=== PATIENT | female | born 2000 | race Caucasian/White ===

== ENCOUNTER 2023-09-03 12:16 | Emergency (ER) | payer OTHER, SELFPAY ==
[2023-09-03 12:17] VITALS: BP 119/87; PULSE 92; RESP 16; TEMP 36.7; O2SAT 99; BMI 25.7
[2023-09-03 12:32] VITALS: PULSE 93; O2SAT 100
--- NOTE | 2023-09-03 12:37 | PC.NURSE ---
DR LOPEZ AT BEDSIDE
[2023-09-03 12:45] VITALS: PULSE 91; O2SAT 100
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
[2023-09-03 13:02] LABS: Microscopic, Urine URINE MICROSCOPIC (MICROSCOPIC)
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
[2023-09-03 13:07] LABS: Appearance,Urine CLEAR (Clear); Bilirubin,Urine Negative (Negative); Blood, Urine Negative (Negative); Color,Urine YELLOW (Yellow); Glucose,Urine (UA) Negative (Negative); Ketones,Urine Negative (Negative); Leukocyte Esterase,Urine Negative (Negative); Nitrate,Urine Negative (Negative); Protein,Urine Negative (Negative); Urobilinogen,Urine 0.2 EU/dl (0.2)
[2023-09-03 13:09] LABS: Urine Pregnancy, HCG Qual. Negative (Negative)
[2023-09-03] MEDS: IBUPROFEN 600 MG TABLET PO (13:30)
[2023-09-03] MEDS: ACETAMINOPHEN 500MG TAB 1000 MG PO (13:30)
[2023-09-03 13:31] LABS: Amorphous Sediment,Urine Trace /lpf; Squamous Epithelial Cell,Urine Occasional #/hpf (0-5)
[2023-09-03 15:21] VITALS: BP 130/70; PULSE 70; RESP 20; TEMP 36.7; O2SAT 97
== END 2023-09-03 15:22 | disposition home or self-care (01) ==
PROVIDERS: Emergency Provider Emergency Medicine
DX: R07.9 Chest pain, unspecified (principal); R51.9 Headache, unspecified; S29.012A Strain of muscle and tendon of back wall of thorax, initial encounter; S39.012A Strain of muscle, fascia and tendon of lower back, initial encounter; V49.40XA Driver injured in collision with unspecified motor vehicles in traffic accident, initial encounter
CPT/HCPCS: 71045; 72070; 72100; 72170; 81001; 81025; 99285

== ENCOUNTER 2023-09-05 09:10 | Emergency (ER) | payer SELFPAY ==
[2023-09-05 09:11] VITALS: BP 140/92; PULSE 112; RESP 16; O2SAT 97; BMI 24.9
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
[2023-09-05] MEDS: METHOCARBAMOL 500MG TABLET 1000 MG PO (09:28)
[2023-09-05] MEDS: ACETAMINOPHEN 500MG TAB 1000 MG PO (09:28)
[2023-09-05 09:44] LABS: Basophils # 0.1 K/mm3 (0-0.2); Basophils % 0.4 % (0.1-2.0); Eosinophils # 0.1 K/mm3 (0.0-0.4); Eosinophils % 0.5 % (0.1-12.0); Hematocrit 42.5 % (37.0-47.0); Hemoglobin 14.4 g/dL (12.2-16.2); Lymphocytes # 1.3 K/mm3 (0.7-4.5); Mean Corpuscular Hemoglobin 31.3 pg (27.0-31.2); Mean Corpuscular Volume 92.2 fl (81-99); Mean Platelet Volume 8.7 fl (7.4-10.4); Monocytes # 0.6 K/mm3 (0.1-1.0); Monocytes % 6.2 % (1.7-9.3); Neutrophils # 8.2 K/mm3 (1.8-7.8); Neutrophils % 79.8 % (37.0-80.0); Platelet Count 232 K/mm3 (142-424); Red Cell Distribution Width 12.8 % (11.5-17.5); White Blood Count 10.3 K/mm3 (4.8-10.8)
[2023-09-05 09:50] LABS: Chloride 101 mmol/L (98-107); Potassium 3.6 mmoL/L (3.5-5.1); Sodium 135 mmol/L (136-145)
[2023-09-05 09:53] LABS: Alanine Aminotransferase 21 U/L (12-78); Albumin/Globulin Ratio 1.3 (1.1-1.8); Alkaline Phosphatase 73 U/L (38-126); Anion Gap 8.6 mEq/L (5-15); Aspartate Amino Transferase 28 U/L (14-36); Bilirubin,Total 1.7 mg/dl (0.2-1.3); Blood Urea Nitrogen 9 mg/dl (7-17); Calcium 8.7 mg/dl (8.4-10.2); Carbon Dioxide 29 mmol/L (22.0-30.0); Creatinine Clearance Estimated 150 mL/min (50-200); Estimated Glomerular Filt Rate 123 ml/min (>60); GFR (African American) 149 ML/MIN (>60); Glucose 100 mg/dl (74-100)
[2023-09-05 10:00] VITALS: BP 124/75; PULSE 94; RESP 22; O2SAT 98
--- NOTE | 2023-09-05 10:04 | PC.NURSE ---
Rounded on pt. No needs voiced at this time. Call light within reach.
[2023-09-05 10:05] LABS: HCG Qualitative, Serum Negative (Negative)
[2023-09-05] MEDS: COCAINE 4% TOPICAL SOLN 4ML BOTTLE 1 ML TP (11:49)
[2023-09-05] MEDS: LIDOCAINE 2% UROJET 10ML TP (11:49)
[2023-09-05] MEDS: EPINEPHrine 1 MG/ML AMPUL TP (11:50)
[2023-09-05] MEDS: KETOROLAC 30MG/ML VIAL 30 MG IM (12:51)
[2023-09-05 13:13] VITALS: BP 99/60; PULSE 83; RESP 18; TEMP 36.6; O2SAT 99
== END 2023-09-05 13:15 | disposition home or self-care (01) ==
PROVIDERS: Emergency Provider Emergency Medicine
DX: S23.3XXA Sprain of ligaments of thoracic spine, initial encounter (principal); L05.01 Pilonidal cyst with abscess; V49.40XA Driver injured in collision with unspecified motor vehicles in traffic accident, initial encounter
CPT/HCPCS: 10081; 72125; 72128; 72131; 72192; 80053; 84703; 85025; 99285

== ENCOUNTER 2023-09-08 13:15 | Emergency (ER) | payer SELFPAY ==
[2023-09-08 13:16] VITALS: BP 132/85; PULSE 75; RESP 18; TEMP 36.7; O2SAT 97; BMI 25.7
--- NOTE | 2023-09-08 14:34 | ED_ITS ---
Discharge Plan Disposition Patient Disposition: Home, Self-Care Prescriptions Prescriptions: No Action methocarbamol 1,000 mg tablet 1,000 mg PO Q8H PRN (Reason: muscle spasm) Qty: 12 0RF amoxicillin-pot clavulanate 875-125 mg tablet 1 tab PO BID Qty: 14 0RF Referrals Follow up/Referrals: Robert Melchor DO [Primary Care Provider] - See instructions Activity Restrictions/Add. Instructions Additional Instructions/Restrictions: Your wound is healing well no evidence of ongoing purulent drainage the superficial area where there was an incision has since healed no evidence of foreign body. Return with spreading redness significant pain high fevers or other concerns. Clinical Impressions Clinical Impression: Encounter for assessment of wound Instructions Patient Instructions: DI for Laceration Repair Discharge ED Provider: Sugar Martin General Adult HPI General Chief complaint: Wound/Laceration Stated complaint: check drain tube Time Seen by Provider: 09/08/23 14:30 Mode of Arrival: Ambulatory Source of Information: Patient Limitations: No Limitations Description of Symptoms (Recalled from ER Triage Doc. by RN): Patient states that she had a cyst drained in the ER a couple of days ago and her had been packing the incision for her. This morning when she woke up the packing had fallen out of the incision and her incision had healed over. States her didn't want to open it up to repack the wound so she has presented to the ER to have her wound looked at. History of Present Illness HPI narrative: Patient is a 23-year-old female was here few days ago had an incision and drainage in her rectal area had some iodoform packing that was placed but the packing fell out and the incision had healed over and she did not know what to do so she came in for reevaluation. Pain is significantly improved no high fevers she still on antibiotics. Related Data Previous Rx's Medication Instructions Recorded amoxicillin 875 mg-potassium 1 tab PO BID pilonidal abscess #14 09/05/23 clavulanate 125 mg tablet tabs methocarbamol 1,000 mg tablet 1,000 mg PO Q8H PRN muscle spasm 09/05/23 #12 tabs Allergies Allergy/AdvReac Type Severity Reaction Status Date / Time No Known Allergies Allergy Verified 09/03/23 12:38 [facility] Disclaimer: The information contained in this section may have been updated after the patient was seen, as this information can be updated by other users. Social History (Updated 09/03/23 @ 15:20 by Tyrone Cardona MD) Smoking Status: Never smoker alcohol intake: never current occupational status: employed Travel in the last 8 weeks: None ROS Obtained: Yes All systems reviewed & no additional complaints except as documented Physical Exam General General appearance: alert Respiratory Respiratory exam: Present normal lung sounds bilaterally Cardiovascular Cardiovascular exam: Present regular rate Rectal Exam comment: There is a 0.5 cm incision that is well-healed there is no ongoing purulent drainage or pathologic erythema Neurological Exam Neurological exam: Present alert Medical Decision Making Jerardo Inquiry Pt receiving controlled substance: No Vital Signs: 09/08/23 13:16 Temperature 98.0 F Temperature Source Oral Pulse Rate [Radial] 75 Respiratory Rate 18 Blood Pressure [Right Arm] 132/85 Blood Pressure Mean [Right Arm] 100 Blood Pressure Source [Right Arm] Automatic Cuff Blood Pressure Position [Right Arm] Sitting 02 Sat by Pulse Oximetry 97 Oxygen Delivery Method Room Air Medical Decision Narrative: Well-healing wound in this 23-year-old with recent incision and drainage no evidence of foreign body ongoing cellulitis or purulent drainage she was reassured she was discharged in stable condition with return precautions. Critical Care Critical Care Time Critical Care Time: No
[2023-09-08 14:37] VITALS: BP 132/85; PULSE 75; RESP 18; TEMP 36.7; O2SAT 97
== END 2023-09-08 14:37 | disposition home or self-care (01) ==
PROVIDERS: Emergency Provider Student in an Organized Health Care Education/Training Program; PCP Internal Medicine
DX: L05.91 Pilonidal cyst without abscess (principal)
CPT/HCPCS: 99281

== ENCOUNTER 2024-04-28 09:16 | Outpatient (CLI) | payer SELFPAY ==
[2024-04-28 09:55] LABS: Basophils # 0.1 K/mm3 (0-0.2); Basophils % 0.9 % (0.1-2.0); Eosinophils % 0.3 % (0.1-12.0); Hematocrit 42.2 % (37.0-47.0); Hemoglobin 13.7 g/dL (12.2-16.2); Lymphocytes # 1.3 K/mm3 (0.7-4.5); Lymphocytes % 19.5 % (10-50); Mean Corpuscular HGB Conc 32.5 g/dL (31.8-35.4); Mean Corpuscular Hemoglobin 30.9 pg (27.0-31.2); Mean Corpuscular Volume 94.9 fl (81-99); Monocytes # 0.5 K/mm3 (0.1-1.0); Neutrophils # 4.7 K/mm3 (1.8-7.8); Neutrophils % 71.3 % (37.0-80.0); Platelet Count 243 K/mm3 (142-424); Red Blood Count 4.44 M/mm3 (4.20-5.40); Red Cell Distribution Width 13.4 % (11.5-17.5); White Blood Count 6.5 K/mm3 (4.8-10.8)
[2024-04-29 09:21] LABS: HCV Ab Non Reactive (Non Reactive); Hepatitis B Surface Antigen Negative (Negative)
[2024-04-29 12:52] LABS: HIV (1&2) Antibody Rapid NONREACTIVE (NONREACTIVE)
[2024-04-29 13:08] LABS: Rubella Antibodies, IgG 2.87 index (Immune >0.99)
[2024-04-29 14:13] LABS: Rapid Plasma Reagin Ab Titer Non Reactive titer (NonRea<1:1)
== END 2024-04-28 23:59 | disposition home or self-care (01) ==
LOC: LAB 09:18
PROVIDERS: PCP Obstetrics & Gynecology; Visit Provider Obstetrics & Gynecology
DX: Z34.81 Encounter for supervision of other normal pregnancy, first trimester (principal)
CPT/HCPCS: 86803; 86703; 36415; 85025; 86593; 86762; 86850; 87086; 87340

== ENCOUNTER 2024-05-27 16:30 | Outpatient (CLI) | payer MEDICAID, SELFPAY | END 2024-05-27 23:59 | disposition home or self-care (01) | LOC: LAB.DROPOF 16:30 | PROVIDERS: PCP Nurse Practitioner Obstetrics & Gynecology; Visit Provider Nurse Practitioner Obstetrics & Gynecology | DX: N39.0 Urinary tract infection, site not specified (principal) | CPT/HCPCS: 87086 ==

== ENCOUNTER 2024-07-23 13:07 | Outpatient (CLI) | payer MEDICAID, SELFPAY ==
--- NOTE | 2024-07-23 13:08 | US_ITS ---
PROCEDURE: US OB /MATERNAL DETAIL CLINICAL INDICATION: 20 week Anatomy Scan-OB Complete COMPARISON: No exams were available for comparison FINDINGS: Transabdominal sonographic images of the pelvis were obtained. From her established due date she is 20 weeks 3 days. Single viable intrauterine gestation. Breech position. Placenta: Posteriorplacenta grade 1. There is an average amount of fluid. The cervix appears satisfactory. Closed and measuring 3.23 cm in length. Complete survey performed and was unremarkable on the submitted images as in PACS. No discrete anomalies identified on survey imaging by technologist. Active fetus. Three-vessel cord with satisfactory umbilical cord insertion. 4- chamber heart noted. Situs, aortic arch, LVOT, RVOT, three-vessel view appear normal. Survey of brain & ventricles Unremarkable. Cerebellum, thalamus, choroid plexus, cisterna magna appear normal. Face and neck survey unremarkable. Profile, nasion, lips and nose appeared normal. Diaphragm and chest views unremarkable. Abdomen: Both kidneys noted and unremarkable. Stomach and bladder noted and satisfactory. Spine: Survey of the spine satisfactory with no anomalies identified nor imaged. Cervical, thoracic, lower spine appear normal. Both arms and legs noted. Amniotic Fluid: Adequate. MVP 2.87 cm Measurements: Average ultrasound age 20weeks 4days. Estimated due date by ultrasound age 0412/06/2024. Estimated weight 356g BPD = 20weeks 4days HC = 20weeks 2days AC = 20weeks 5days FL = 20weeks 3days Growth Percentile= 48 Heart Rate = 150bpm Cerebellum = 20weeks 2days Humerus = 20weeks 3days HC/AC is 1.15 FL/BPD is 0.69 FL/AC is 0.22 IMPRESSION: 1. Viable fetus in the breech presentation with a posterior placenta grade 1. 2. The fluid is within normal limits, MVP 2.87 cm. 3. Anatomical scan appears normal. Spinal views were incomplete due to position and suggest repeat scan in 2-3 weeks time. 4. There was an intracardiac echogenic foci within the left ventricle. Suggest maternal medicine consult. 5. There has been good interval growth with the fetus currently 48th percentile. Dictated by: John Berry MD 07/23/2024 17:52 John Berry MD in [facility] 07/23/2024 17:52
== END 2024-07-23 23:59 | disposition home or self-care (01) ==
LOC: RAD 13:08
PROVIDERS: PCP Nurse Practitioner Obstetrics & Gynecology; Referring Provider Nurse Practitioner Obstetrics & Gynecology; Visit Provider Obstetrics & Gynecology
DX: Z36.3 Encounter for antenatal screening for malformations (principal); Z3A.20 20 weeks gestation of pregnancy
CPT/HCPCS: 76811

== ENCOUNTER 2024-08-16 12:51 | Outpatient (CLI) | payer MEDICAID, SELFPAY ==
--- NOTE | 2024-08-16 12:51 | US_ITS ---
PROCEDURE: US OB FOLLOW UP CLINICAL INDICATION: Spinal views were incomplete due to positi COMPARISON: US US OB /MATERNAL DETAIL from 07/23/2024 FINDINGS: Transabdominal sonographic images of the pelvis were obtained. The following parameters are obtained: From her established due date she is 23weeks 6days Viable fetus in the breech presentation with a posterior placenta grade 1. The cervix measures 3.65 cm heart rate: 146bpm bpm. Amniotic fluid: Appears normal No obvious anomalies evident. stomach, bladder, kidneys, three-vessel cord, four chamber heart appear normal. There continues to be a small intracardiac echogenic foci in the left ventricle. spine: Cervical, thoracic and lower spine appear normal today. IMPRESSION: 1. Viable fetus in the breech presentation with a posterior placenta grade 1. 2. The fluid is within normal limits. 3. Limited anatomical scan today appears normal. Complete spinal views were seen and appear normal. There continues to be a small intracardiac echogenic foci within the left ventricle. Dictated by: John Berry MD 08/17/2024 08:17 John Berry MD in [facility] 08/17/2024 08:17
== END 2024-08-16 23:59 | disposition home or self-care (01) ==
LOC: RAD 12:51
PROVIDERS: PCP Internal Medicine; Visit Provider Obstetrics & Gynecology
DX: Z36.2 Encounter for other antenatal screening follow-up (principal)
CPT/HCPCS: 76816

== ENCOUNTER 2024-09-02 13:27 | Outpatient (CLI) | payer MEDICAID, SELFPAY ==
[2024-09-02 15:08] LABS: Basophils # 0.1 K/mm3 (0-0.2); Basophils % 0.7 % (0.1-2.0); Eosinophils # 0.1 K/mm3 (0.0-0.4); Eosinophils % 1.2 % (0.1-12.0); Hematocrit 33.6 % (37.0-47.0); Hemoglobin 11.4 g/dL (12.2-16.2); Lymphocytes # 1.6 K/mm3 (0.7-4.5); Lymphocytes % 15.5 % (10-50); Mean Corpuscular HGB Conc 33.9 g/dL (31.8-35.4); Mean Corpuscular Hemoglobin 30.9 pg (27.0-31.2); Mean Corpuscular Volume 91.1 fl (81-99); Mean Platelet Volume 10.1 fl (7.4-10.4); Monocytes # 1.2 K/mm3 (0.1-1.0); Monocytes % 11.2 % (1.7-9.3); Neutrophils # 7.2 K/mm3 (1.8-7.8); Neutrophils % 67.9 % (37.0-80.0); Platelet Count 220 K/mm3 (142-424); Red Blood Count 3.69 M/mm3 (4.20-5.40); Red Cell Distribution Width 12.9 % (11.5-17.5); White Blood Count 10.6 K/mm3 (4.8-10.8)
[2024-09-02 15:36] LABS: Glucose 1 Hour 78 mg/dL (74-100)
[2024-09-02 17:57] LABS: RPR W/RFX Titers Nonreactive (Nonreactive)
== END 2024-09-02 23:59 | disposition home or self-care (01) ==
PROVIDERS: PCP Internal Medicine; Visit Provider Obstetrics & Gynecology
DX: Z34.90 Encounter for supervision of normal pregnancy, unspecified, unspecified trimester (principal)
CPT/HCPCS: 82947; 85025; 86592

== ENCOUNTER 2024-11-16 11:30 | Outpatient (CLI) | payer MEDICAID, SELFPAY | END 2024-11-16 23:59 | disposition home or self-care (01) | LOC: LAB.DROPOF 11-17 14:02 | PROVIDERS: PCP Obstetrics & Gynecology; Visit Provider Obstetrics & Gynecology | DX: Z34.90 Encounter for supervision of normal pregnancy, unspecified, unspecified trimester (principal) | CPT/HCPCS: 86403 ==

== ENCOUNTER 2024-11-23 14:39 | Outpatient (CLI) | payer MEDICAID, SELFPAY ==
--- NOTE | 2024-11-23 14:33 | US_ITS ---
PROCEDURE: US OB BIOPHYSICAL PROFILE CLINICAL INDICATION: Needs Hoang for growth and wellbeing COMPARISON: US US OB /MATERNAL DETAIL from 07/23/2024 US US OB FOLLOW UP from 08/16/2024 FINDINGS: Transabdominal sonographic images of the uterus were obtained. From her established due date she is 38weeks 0 days. The following parameters are obtained: Viable Fetus in the cephalic presentation with a posterior placenta grade 2. Average ultrasound age is 35weeks 4days Estimated weight 2,778g, 6 lb 2 oz Cervix measures 3.06 cm. Measurements: heart Rate = 143bpm BPD = 34weeks 4days, 3 percentile HC = 36weeks 0 days, 3 percent AC = 36weeks 5days 0 days, 29 percentile FL = 34weeks 5days, <2 percentile HC/AC is 0.97 FL/BPD is 0.79 FL/AC is 0.21 13 percentile Amniotic fluid index: 12.34cm, MVP 5.47 cm Qualitative AFV:2 Breathing movements: 2 Gross Body Movements: 2 Tone: 2 Biophysical profile score: 8 Doppler evaluation of the umbilical artery: SD ratio: 2.21-2.72 Resistive index: 0.63 No obvious anomalies evident.Kidneys, bladder, stomach, four-chamber heart, three-vessel cord appear normal. IMPRESSION: 1. Viable fetus in the cephalic presentation with a posterior placenta grade 2. 2. The fluid is within normal limits with an amniotic fluid index 12.34 cm, MVP 5.49 cm. 3. Biophysical profile is 8/8 with good breathing movement and movement seen. 4. SD ratio is normal 2.21-2.71. 5. The head and femur length are small for gestational age. Fetus measures 13 percentile. 6. Limited anatomical scan appears normal. Dictated by: John Berry MD 11/23/2024 16:50 John Berry MD in [facility] 11/23/2024 16:50
[2024-11-23 15:47] LABS: Basophils # 0.1 K/mm3 (0-0.2); Basophils % 0.7 % (0.1-2.0); Eosinophils # 0.1 K/mm3 (0.0-0.4); Eosinophils % 0.7 % (0.1-12.0); Hematocrit 36.2 % (37.0-47.0); Hemoglobin 12.5 g/dL (12.2-16.2); Lymphocytes # 1.8 K/mm3 (0.7-4.5); Mean Corpuscular HGB Conc 34.5 g/dL (31.8-35.4); Mean Corpuscular Hemoglobin 31.7 pg (27.0-31.2); Mean Corpuscular Volume 91.9 fl (81-99); Mean Platelet Volume 10.6 fl (7.4-10.4); Monocytes # 1.4 K/mm3 (0.1-1.0); Monocytes % 11.8 % (1.7-9.3); Neutrophils # 7.8 K/mm3 (1.8-7.8); Neutrophils % 65.4 % (37.0-80.0); Platelet Count 191 K/mm3 (142-424); Red Blood Count 3.94 M/mm3 (4.20-5.40); Red Cell Distribution Width 13.1 % (11.5-17.5); White Blood Count 11.9 K/mm3 (4.8-10.8)
[2024-11-23 15:57] LABS: Activated Partial Thrombo Time 26.2 seconds (22.8-30.6); INR 0.87 (0.9-1.1); Prothrombin Time 9.9 seconds (10.1-12.5)
[2024-11-23 17:12] LABS: Albumin Level 2.9 g/dl (3.5-5.0); Chloride 105 mmol/L (98-107); Potassium 4.2 mmoL/L (3.5-5.1); Sodium 135 mmol/L (136-145)
[2024-11-23 17:14] LABS: Alanine Aminotransferase 22 U/L (12-78); Anion Gap 10.2 mEq/L (5-15); Aspartate Amino Transferase 32 U/L (14-36); Blood Urea Nitrogen 5 mg/dl (7-17); Carbon Dioxide 24 mmol/L (22.0-30.0); Estimated Glomerular Filt Rate 194 ml/min (>60); GFR (African American) 235 ML/MIN (>60)
[2024-11-23 17:15] LABS: Albumin/Globulin Ratio 1.1 (1.1-1.8); Alkaline Phosphatase 145 U/L (38-126); Bilirubin,Total 0.6 mg/dl (0.2-1.3); Calcium 8.7 mg/dl (8.4-10.2); Globulin 2.6 g/dL (1.3-3.2); Glucose 73 mg/dl (74-100); Total Protein,Serum 5.5 g/dl (6.3-8.2)
[2024-11-23 19:00] LABS: Uric Acid 3.3 mg/dl (2.5-6.2)
== END 2024-11-23 23:59 | disposition home or self-care (01) ==
LOC: RAD 14:40
PROVIDERS: PCP Internal Medicine; Visit Provider Obstetrics & Gynecology
DX: Z36.3 Encounter for antenatal screening for malformations (principal); O13.3 Gestational [pregnancy-induced] hypertension without significant proteinuria, third trimester; Z3A.38 38 weeks gestation of pregnancy
CPT/HCPCS: 36415; 76816; 76819; 76820; 80053; 82728; 84550; 85025; 85610; 85730

== ENCOUNTER 2024-11-24 13:07 | Inpatient (IN) | payer MEDICAID, SELFPAY ==
[2024-11-24 13:24] VITALS: BP 122/72; PULSE 103; RESP 20; TEMP 36.9; O2SAT 98; BMI 33.7
[2024-11-24 13:27] VITALS: BMI 33.7
[2024-11-24 13:48] LABS: Microscopic, Urine URINE MICROSCOPIC (MICROSCOPIC)
[2024-11-24 14:05] LABS: Basophils # 0.1 K/mm3 (0-0.2); Basophils % 0.6 % (0.1-2.0); Eosinophils # 0.1 K/mm3 (0.0-0.4); Eosinophils % 0.6 % (0.1-12.0); Hematocrit 36.2 % (37.0-47.0); Hemoglobin 12.4 g/dL (12.2-16.2); Lymphocytes # 1.7 K/mm3 (0.7-4.5); Lymphocytes % 14.4 % (10-50); Mean Corpuscular HGB Conc 34.3 g/dL (31.8-35.4); Mean Corpuscular Hemoglobin 31.2 pg (27.0-31.2); Mean Platelet Volume 10.8 fl (7.4-10.4); Monocytes # 1.2 K/mm3 (0.1-1.0); Monocytes % 10.4 % (1.7-9.3); Neutrophils # 8.1 K/mm3 (1.8-7.8); Neutrophils % 67.9 % (37.0-80.0); Platelet Count 205 K/mm3 (142-424); Red Blood Count 3.98 M/mm3 (4.20-5.40); Red Cell Distribution Width 13.2 % (11.5-17.5); White Blood Count 11.9 K/mm3 (4.8-10.8)
[2024-11-24 14:11] LABS: Bilirubin,Urine Negative (Negative); Blood, Urine Negative (Negative); Color,Urine YELLOW (Yellow); Glucose,Urine (UA) Negative (Negative); Ketones,Urine Negative (Negative); Leukocyte Esterase,Urine TRACE (Negative); Nitrate,Urine Negative (Negative); Protein,Urine Negative (Negative)
[2024-11-24 14:14] LABS: Appearance,Urine Slightly Cloudy (Clear)
--- NOTE | 2024-11-24 14:19 | HMH.PHAINT1 ---
Pharmacy Intervention Comments: MEDICATION RECONCILIATION COMPLETED ON PATIENT USING EXTERNAL FILL HISTORY FROM PHARMACY. -SARAHI ORDOÑEZ, JOHANNED
[2024-11-24] MEDS: miSOPROStol 100MCG TABLET 50 MCG PO ×2 (15:00→21:09)
[2024-11-24 15:54] LABS: Bacteria,Urine 2+ /lpf
[2024-11-24 20:37] VITALS: BP 132/77; PULSE 98; RESP 17; TEMP 36.9; O2SAT 98
[2024-11-24 22:23] LABS: RPR W/RFX Titers Nonreactive (Nonreactive)
[2024-11-25] VITALS (7 sets, daily range): BP systolic 103–123; BP diastolic 59–77; PULSE 71–81; RESP 16–21; TEMP 36.5–36.9; O2SAT 98
[2024-11-25] MEDS: miSOPROStol 100MCG TABLET 50 MCG PO (03:29)
[2024-11-25] MEDS: OXYTOCIN/RINGERS LACTATE 30 UNITS/500 ML BAG IV (10:40)
[2024-11-25] MEDS: DEXTROSE 5%-LACTATED RINGERS 1,000 ML 125 ML IV ×2 (10:40→18:28)
--- NOTE | 2024-11-25 13:17 | P.HP_ITS ---
History of Present Illness *Admission Date: 11/24/24 *Reason for visit:: Induction *History of present illness: Zoey Garg is a 24-year-old G1, P0 who presented yesterday for induction of labor secondary to gestational hypertension. She is 38 weeks and 2 days gestation today. Her LLOYD of 12/07/2024 is based on her last menstrual period which was consistent with a 7-week ultrasound. Outside of new onset gestational hypertension the patient has also been diagnosed with FGR. BPD and HC in the 3rd percentile. Femur length less than 2. Her BPP on the first was 8 out of 8. O+, antibody negative, rubella immune, hepatitis B negative, hepatitis C negative, RPR negative, HIV negative 1 hour GTT: 78 GBS negative PFSH PFSH Disclaimer: The information contained in this section may have been updated after the patient was seen, as this information can be updated by other users. Medical History Headaches due to old head injury Surgical History No history of previous surgery Family History Other Asthma Stroke Social History (Updated 11/24/24 @ 13:51 by Leta Lewis RN) Smoking Status: Never smoker alcohol intake: never current occupational status: employed Travel in the last 8 weeks: None Have you lived/traveled outside [place] in past 30 days?: No Contact w/someone who lives/traveled outside US past 30 days?: No Exposure to someone with infectious disease in past 14 days?: No Do you have a fever (greater than 100.4 F or 38 C)?: No Have you tested positive for COVID-19: No Exposed to someone with COVID-19 in past 14 days?: No Do you have a sore throat?: No Do you have a cough?: No Do you have any weakness?: No Are you experiencing any nausea/vomitting?: No Do you have any diarrhea?: No Are you experiencing any unusual bleeding?: No Do you have any muscle aches/pain?: No Do you have any abdominal pain?: No Are you experiencing loss of taste or smell?: No Other Medical History Have you received the Flu Vaccine for this season: No Have you received the Pneumonia Vaccine: No Review of Systems Review of Systems Review of systems (narrative): Review of Systems Constitutional: Denies fever, chills, and sweats Eyes: Denies vision change/ pain Respiratory: Denies cough and shortness of breath Cardiovascular: Denies chest pain and lightheadedness Gastrointestinal: Denies abdominal pain. Denies nausea, vomiting. Genitourinary: Denies dysuria and incontinence Musculoskeletal: Denies shoulder pain and back pain Neurological: Denies change in speech or headaches Meds Home Medications and Allergies Home Medications ?Medication ?Instructions ?Recorded ?Confirmed ?Type vit no.133-ferrous 1 tab PO DAILY 07/27/24 11/24/24 History fumarate 28 mg-folic acid 800 mcg tablet () famotidine 20 mg tablet 20 mg PO DAILY #30 tabs 09/30/24 11/24/24 Rx New Prescriptions to Start Prescriptions: Allergies Allergy/AdvReac Type Severity Reaction Status Date / Time No Known Allergies Allergy Verified 11/23/24 13:56 Exam Data for Last 24 hours Vital signs and Labs for Last 24 Hours: Temp Pulse Resp BP Pulse Ox O2 Del Method 97.9 F 71 16 121/68 98 Room Air 11/25/24 13:11 11/25/24 08:39 11/25/24 08:39 11/25/24 08:39 11/25/24 08:39 11/25/24 08:39 Laboratory Results - last 24 hr 11/24/24 13:18: Urine Color Yellow, Urine Appearance Slightly cloudy, Urine pH 7.0, Ur Specific [place] 1.020, Urine Protein Negative, Urine Glucose (UA) Negative, Urine Ketones Negative, Urine Blood Negative, Urine Nitrate Negative, Urine Bilirubin Negative, Urine Urobilinogen 1.0, Ur Leukocyte Esterase Trace, Urine RBC None, Urine WBC 3-5, Ur Squamous Epith Cells 10-20, Urine Bacteria 2+ 11/24/24 13:43: WBC 11.9 H, RBC 3.98 L, Hgb 12.4, Hct 36.2 L, MCV 91.0, MCH 31.2, MCHC 34.3, RDW 13.2, Plt Count 205, MPV 10.8 H, Neut % (Auto) 67.9, Lymph % (Auto) 14.4, [place] % (Auto) 10.4 H, Eos % (Auto) 0.6, Baso % (Auto) 0.6, Neut # (Auto) 8.1 H, Lymph # (Auto) 1.7, [place] # (Auto) 1.2 H, Eos # (Auto) 0.1, Baso # (Auto) 0.1, RPR w/Rflx to Titer Nonreactive, Blood Type O Positive, Antibody Screen Negative I & O for Last 24 hours: Intake & Output 11/22/24 11/23/24 11/24/24 11/25/24 23:59 23:59 23:59 23:59 Weight 197 lb Narrative: General: patient is alert oriented in no acute distress and responds appropriately to questions. HEENT: NCAT, EOMI, moist mucous membranes, neck supple with full ROM Cardiovascular: RRR +S1/S2, no murmurs or rubs Pulmonary: Clear to auscultation bilaterally, nonlabored breathing, symmetric chest rise Abdominal: Gravid abdomen appropriate for gestation. No guarding, rebound, or tenderness noted. Extremities: trace edema, no tenderness or cyanosis noted Skin: Normal turgor, intact, warm. Negative for erythema, pallor, petechia, or lesions Neurologic: Negative for sensory or motor deficit Psychiatric: Normal affect, normal thought process, good judgment and insight, no depression or anxious mood appreciated. *Routine HEENT Exam Head: Present normocephalic and atraumatic Eye: Present EOMI, PERRL and normal accommodation; Absent conjunctival icterus, scleral injection, nystagmus or exophthalmos ENT: Present mucous membranes moist *Routine Respiratory Exam Respiratory: Present CTA bilaterally, normal respiratory effort, able to speak in complete sentences and symmetric chest movement; Absent accessory muscle use, decreased breath sounds, rales, respiratory distress, wheezes, distant breath sounds or diminished air movement *Routine Cardiovascular Exam Cardiovascular: Present RRR, Normal S1 and Normal S2; Absent murmur or gallop *Routine Abdominal Exam Abdominal: Present soft and normoactive bowel sounds; Absent tenderness, distended, rebound or guarding *Routine Rectal Exam Rectal:: deferred *Routine Genitalia Exam Genitalia:: normal female Assessment and Plan *Assessment and plan (1) Gestational hypertension: Status: Acute Category: Medical Code(s): O13.9 - Gestational [-induced] hypertension without significant proteinuria, unspecified trimester (2) IUGR, : Status: Acute Category: Medical Code(s): O36.5990 - Maternal care for other known or suspected poor growth, unspecified trimester, not applicable or unspecified (3) Encounter for induction of labor: Status: Acute Category: Medical Code(s): Z34.90 - Encounter for supervision of normal , unspecified, unspecified trimester Plan - Monitor vitals - Admit to L&D for induction of labor - Plan for induction with 50mcg of PO cytotec [id number] per protocol - Plan for induction with Pitocin, per protocol - External FHR and TOCO monitor - Exam on admission: Closed, thick, high - GBS neg/ Blood type: O+ - Hemoglobin: 12.4, Plt: 205 - Declines epidural at this time - Anticipate vaginal delivery of male infant: Sawyer Diaz
[2024-11-25] MEDS: FAMOTIDINE 20MG TABLET 20 MG PO (16:30)
--- NOTE | 2024-11-25 17:04 | EXP.LABOR.NO ---
Labor Note Subjective: Date: 11/25/24 Time: 17:04 regular contraction Objective: NST:: Reactive Contractions:: every 2-3 minutes Cervical Dilation:: 5 Effacement:: 70% Station: -2 Membranes: ruptured Fetus: Monitoring?: Yes monitoring type:: External Plan: Anesthesia for epidural?: No Plan for ?: No Continue to monitor?: Yes Start pushing?: No Additional information:: At this time heart rate tracing is 130/moderate variability/accelerations present/no decelerations. The patient has had episodes of late and variable decelerations respond well with uterine resuscitation. She is starting to get more uncomfortable. Overall she is doing very well. Will continue to monitor and continue with Pitocin induction
[2024-11-25] MEDS: ONDANSETRON 4MG/2ML VIAL 4 MG IV (19:04)
[2024-11-25] MEDS: LACTATED RINGERS 1000ML 1,000 ML 200 ML IV (21:24)
[2024-11-25] MEDS: LACTATED RINGERS 1000ML 1,000 ML 500 ML IV (21:31)
--- NOTE | 2024-11-25 22:14 | P.PNANES_ITS ---
[facility] Disclaimer: The information contained in this section may have been updated after the patient was seen, as this information can be updated by other users. Medical History Headaches due to old head injury Surgical History No history of previous surgery Family History Other Asthma Stroke Social History (Updated 11/24/24 @ 13:51 by Leta Lewis RN) Smoking Status: Never smoker alcohol intake: never substance use type: denies use current occupational status: employed Travel in the last 8 weeks: None [facility] Anesthesia Checklist Patient Identification Patient Identification: Verbal (Name & ) Structural Data Admitted From: Inpatient Planned Operative Procedure/s: labor epidural Consent for Planned Operative Procedure(s) Verified: Yes Airway Assessment Mallampati Score:: Class II C-Spine Mobility Assessed: Yes TMJ Mobility Assessed: Yes Dentition: Good Dentition Neurological Assessment Level of Consciousness: Awake, Alert and Appropriate Anesthesia Plan Anesthesia Risk discussed: Yes Anesthesia Plan: Verified ASA Class: II Anesthesia Type: Epidural
[2024-11-26] MEDS: OXYTOCIN/RINGERS LACTATE 30 UNITS/500 ML BAG 999 UNITS IV (04:22)
[2024-11-26] MEDS: MORPHINE 2MG/ML SYRINGE 2 MG IV (04:28)
[2024-11-26] MEDS: OXYTOCIN/RINGERS LACTATE 30 UNITS/500 ML BAG 40 UNITS IV (04:37)
--- NOTE | 2024-11-26 04:43 | EXP.DN ---
Delivery Note Delivery Date:: 11/26/24 Delivery Time:: 04:18 Anesthesia Type: Epidural Was labor medically induced?: Yes Induction method: per misoprostol protocol Gestational age (weeks): 38 Infant delivered prior to 39 weeks?: Yes Justification for early elective delivery:: Gestational Hypertension and IUGR Infant Gender: Male at 1 minute: 7 at 5 minutes: 9 Delivery Procedure:: Preoperative diagnosis: 1. at 38 completed this weeks gestation, vertex 2. Gestational hypertension 3. Intrauterine growth restriction 4. Rh positive 5. GBS positive Postoperative diagnosis: 1. at 38 completed this weeks gestation, vertex 2. Gestational hypertension 3. Intrauterine growth restriction 4. Rh positive 5. GBS positive 6. Shoulder dystocia EBL: 350mL Specimen: 1. Cord blood 2. Arterial and venous cord gases 3. Placenta Findings: 1. Liveborn viable male : Sawyer Diaz. Apgars 7/9 at 1 and 5 minutes respectively. Weight 6lb 12oz. 3059g 2. 1st degree midline perineal laceration Complications: Shoulder dystocia Procedure: Vacuum-assisted vaginal delivery Zoey Garg is a 24-year-old who presented for medical induction of labor secondary to gestational hypertension and IUGR on 11/24/2024. She received Cytotec followed by AROM and Pitocin. She progressed very slowly throughout the day remaining 5 cm for the majority of 11/25/24. She was still 5 cm and was noted to be having recurrent variable decelerations. An amnioinfusion was initiated and the patient received an epidural for anesthesia. Over the course of the next 1 to 2 hours her strip significantly improved and was reactive with accelerations. She continued to progress and was noted to be complete. During pushing the patient had variable and late decelerations with contractions. They continue to be slower to return to baseline following the contractions. The was noted to be in the RELL position. FHRT was noted to be category two with minimal variability and decelerations with contractions. The infant was visible at the perineum without the labia. Her epidural was providing moderate anesthesia. Her pelvis was noted to be adequate for vaginal delivery. The risk and benefits of vacuum-assisted vaginal delivery were reviewed with the patient and she elected to proceed with a vacuum-assisted vaginal delivery. Her bladder had been recently emptied. The vacuum was applied over the sagittal suture, in front of the posterior fontanelle, and careful attention was given to avoid entrapment of vaginal tissues. With the next contraction the Kiwi Vacuum was applied to 20mmHg of pressure and traction was applied in the downward direction along the pelvic axis. This was done in conjunction with uterine contraction and maternal expulsive effort. With one contraction the head delivered with gentle assistance. There were no pop offs. With the loss of the uterine contraction the shoulders were slow to deliver. With the assistance of Juany, suprapubic pressure, and maternal effort shoulder dystocia was quickly and effectively resolved. The anterior right shoulder delivered, followed by the posterior shoulder without dystocia. The infants tone was poor, and color. and there was a very weak cry. The umbilical cord was doubly clamped and cut. Arterial and venous cord gases, and cord blood was collected and sent for routine testing. The placenta delivered with cord traction and suprapubic contertraction. Pitocin was started. The uterus was firm and bleeding was minimal. The perineum, vaginal mackenzie, cervix, and paraurethral area were inspected thoroughly. 10mLs of 1%lidocaine was injected in the perineum for patient comfort. First-degree perineal laceration repaired with 2 single simple interrupted stitches with 3-0 Vicryl. This concluded the delivery. The patient was counseled regarding the events of the delivery and repair. All counts were correct by nursing. Mother and infant were doing well and bonding upon my leaving the delivery room. Laceration:: vaginal Placental Delivery Description: Spontaneous
[2024-11-26 05:18] LABS: Cord Blood PH 7.13 (7.35-7.45)
[2024-11-26 05:19] LABS: Cord Blood PH 7.16 (7.35-7.45)
[2024-11-26 06:59] LABS: Basophils # 0.1 K/mm3 (0-0.2); Basophils % 0.3 % (0.1-2.0); Hematocrit 36.5 % (37.0-47.0); Hemoglobin 12.7 g/dL (12.2-16.2); Lymphocytes # 1.3 K/mm3 (0.7-4.5); Lymphocytes % 4.9 % (10-50); Mean Corpuscular HGB Conc 34.8 g/dL (31.8-35.4); Mean Corpuscular Hemoglobin 31.9 pg (27.0-31.2); Mean Corpuscular Volume 91.7 fl (81-99); Mean Platelet Volume 11.1 fl (7.4-10.4); Monocytes # 2.6 K/mm3 (0.1-1.0); Monocytes % 9.9 % (1.7-9.3); Neutrophils # 21.3 K/mm3 (1.8-7.8); Neutrophils % 82.8 % (37.0-80.0); Platelet Count 184 K/mm3 (142-424); Red Blood Count 3.98 M/mm3 (4.20-5.40); White Blood Count 25.8 K/mm3 (4.8-10.8)
[2024-11-26 07:29] LABS: MANUAL DIFFERENTIAL MANUAL DIFFERENTIAL (MANUAL DIFF)
[2024-11-26] MEDS: BENZOCAINE-MENTHOL SPRAY 56GM CAN TP (07:43)
[2024-11-26] MEDS: WITCH HAZEL 40 PADS/BOX 1 EACH TP (07:44)
--- NOTE | 2024-11-26 08:44 | PC.NURSE ---
Reporting arterial BE(B) -10.7 mmol/L, venous BE(B) -10.6 mmol/L, from cord gas pH reported 11/26/2024 at 04:[address] Melchor's request.
[2024-11-26 08:46] VITALS: BP 123/63; PULSE 103; RESP 20; TEMP 36.7
[2024-11-26] MEDS: IBUPROFEN 400 MG TABLET 800 MG PO ×2 (09:11→20:45)
[2024-11-26] MEDS: FAMOTIDINE 20MG TABLET 20 MG PO (09:12)
[2024-11-26] MEDS: SENNA 8.6MG TABLET 8.6 MG PO ×2 (09:13→20:45)
[2024-11-26 09:22] LABS: Lymphocytes % 8 % (10-50); Monocytes % 4 % (2-9); Neutrophils % 88 % (42-76); Platelet Estimate Normal; RBC Morphology Normal; Total Cells Counted 100
--- NOTE | 2024-11-26 15:24 | EXP.PN ---
Subjective *Date: 11/26/24 *Time: 15:24 Interval history: Zoey is a G1, P1 day #0 following a vacuum-assisted vaginal delivery at 38 weeks gestation. was complicated by gestational hypertension and IUGR. Routine course. She is doing well, sitting up in bed, and visiting with family this morning. -Reports pain is well-controlled -Reports she is tolerating p.o. without nausea or vomiting. -Reports her lochia is scant. -Undecided on contraception -She is breast-feeding her male infant -Ambulating, voiding difficulty or dysuria. Denies chest pain shortness of breath or pain in her legs. No further complaints at this time. Exam Data for Last 24 hours Vital signs and Labs for Last 24 Hours: Temp Pulse Resp BP Pulse Ox O2 Del Method 98.0 F 103 H 20 123/63 98 Room Air 11/26/24 08:46 11/26/24 08:46 11/26/24 08:46 11/26/24 08:46 11/25/24 08:39 11/25/24 19:41 Laboratory Results - last 24 hr 11/26/24 04:26: Cord ABG pH 7.13 L* 11/26/24 04:27: Cord ABG pH 7.16 L* 11/26/24 06:30: WBC 25.8 H* D, RBC 3.98 L, Hgb 12.7, Hct 36.5 L, MCV 91.7, MCH 31.9 H, MCHC 34.8, RDW 13.0, Plt Count 184, MPV 11.1 H, Neut % (Auto) 82.8 H, Lymph % (Auto) 4.9 L, [place] % (Auto) 9.9 H, Eos % (Auto) 0.0 L, Baso % (Auto) 0.3, Neut # (Auto) 21.3 H, Lymph # (Auto) 1.3, [place] # (Auto) 2.6 H, Eos # (Auto) 0.0, Baso # (Auto) 0.1, Total Counted 100, Neutrophils % (Manual) 88 H, Lymphocytes % (Manual) 8 L, Monocytes % (Manual) 4, Platelet Estimate Normal, RBC Morphology Normal I & O for Last 24 hours: Intake & Output 11/23/24 11/24/24 11/25/24 11/26/24 23:59 23:59 23:59 23:59 Intake Total 1648 / 1648 Output Total 300 / 300 Balance 1348 / 1348 Weight 197 lb Microbiology Reports for the Last 24 Hours: Microbiology 11/24/24 13:18 Urine,Clean Catch Urine Culture - Final Multiple organisms, suggests contamination. Narrative: General: patient is alert oriented in no acute distress and responds appropriately to questions. Appears to be in minimal pain. Sitting up in the chair and doing well HEENT: NCAT, EOMI, moist mucous membranes, neck supple with full ROM Cardiovascular: RRR +S1/S2, no murmurs or rubs Pulmonary: Clear to auscultation bilaterally, nonlabored breathing, symmetric chest rise Abdominal: Fundus at the umbilicus, firm, and tenderness appropriate for the period. Extremities: trace edema, no tenderness or cyanosis noted Skin: Normal turgor, intact, warm. Negative for erythema, pallor, petechia, or lesions Neurologic: Negative for sensory or motor deficit Psychiatric: Normal affect, normal thought process, good judgment and insight, no depression or anxious mood appreciated. Constitutional Constitutional: no acute distress *Routine HEENT Exam Head: Present normocephalic Eye: Present EOMI and PERRL ENT: Present mucous membranes moist *Routine Neck Exam Neck: Present supple; Absent lymphadenopathy *Routine Respiratory Exam Respiratory: Present CTA bilaterally *Routine Cardiovascular Exam Cardiovascular: Present RRR *Routine Abdominal Exam Abdominal: Present soft and normoactive bowel sounds; Absent tenderness *Routine Extremities Exam Extremities: Absent cyanosis, clubbing or edema *Routine Skin Exam Skin: Present warm; Absent rash *Routine Neurological Exam Neurological: Present alert and oriented X3 Assessment and Plan *Assessment and plan (1) Encounter for induction of labor: Status: Acute Category: Medical Code(s): Z34.90 - Encounter for supervision of normal , unspecified, unspecified trimester (2) IUGR, : Status: Acute Category: Medical Code(s): O36.5990 - Maternal care for other known or suspected poor growth, unspecified trimester, not applicable or unspecified (3) Gestational hypertension: Status: Acute Category: Medical Code(s): O13.9 - Gestational [-induced] hypertension without significant proteinuria, unspecified trimester (4) Elevated blood pressure affecting in third trimester, antepartum: Status: Acute Category: Medical Code(s): O16.3 - Unspecified maternal hypertension, third trimester (5) : Status: Acute Category: Medical Code(s): Z34.90 - Encounter for supervision of normal , unspecified, unspecified trimester (6) Vacuum-assisted vaginal delivery: Status: Acute Category: Medical Code(s): Z37.9 - Outcome of delivery, unspecified Plan Stable. PPD#0 s/p VAVD -Doing well. VSS. Serial lochia and fundal checks. -Continue with perineal ice packs for discomfort -Hemoglobin: 12.7--> pending -O+/antibody negative -, male -Contraception: undecided -Follow-up 2 weeks for routine visit -Dispo: home in 1-3 days pending mother/ status
[2024-11-26 16:45] VITALS: BP 117/66; PULSE 90; RESP 14; TEMP 36.9; O2SAT 99
[2024-11-26] MEDS: ACETAMINOPHEN 500MG TAB 1000 MG PO (20:46)
[2024-11-27 06:00] LABS: Basophils # 0.1 K/mm3 (0-0.2); Basophils % 0.7 % (0.1-2.0); Eosinophils # 0.1 K/mm3 (0.0-0.4); Eosinophils % 0.7 % (0.1-12.0); Hematocrit 33.8 % (37.0-47.0); Lymphocytes # 2.2 K/mm3 (0.7-4.5); Lymphocytes % 13.3 % (10-50); Mean Corpuscular HGB Conc 33.4 g/dL (31.8-35.4); Mean Corpuscular Hemoglobin 31.3 pg (27.0-31.2); Mean Corpuscular Volume 93.6 fl (81-99); Mean Platelet Volume 10.8 fl (7.4-10.4); Monocytes # 1.9 K/mm3 (0.1-1.0); Monocytes % 11.4 % (1.7-9.3); Neutrophils # 11.3 K/mm3 (1.8-7.8); Neutrophils % 68.4 % (37.0-80.0); Platelet Count 184 K/mm3 (142-424); Red Blood Count 3.61 M/mm3 (4.20-5.40); Red Cell Distribution Width 13.6 % (11.5-17.5); White Blood Count 16.5 K/mm3 (4.8-10.8)
[2024-11-27 06:04] LABS: Hemoglobin 11.3 g/dL (12.2-16.2)
[2024-11-27 06:06] LABS: MANUAL DIFFERENTIAL MANUAL DIFFERENTIAL (MANUAL DIFF)
[2024-11-27 07:05] LABS: Lymphocytes % 16 % (10-50); Monocytes % 12 % (2-9); Neutrophils % 72 % (42-76); Platelet Estimate Normal; RBC Morphology Normal; Total Cells Counted 100
[2024-11-27 08:17] VITALS: BP 133/80; PULSE 85; RESP 16; TEMP 36.6; O2SAT 98
[2024-11-27] MEDS: SENNA 8.6MG TABLET 8.6 MG PO (09:53)
[2024-11-27] MEDS: FAMOTIDINE 20MG TABLET 20 MG PO (09:53)
--- NOTE | 2024-11-27 13:45 | EXP.ACUTE.PN ---
Subjective *Date: 11/27/24 *Time: 13:45 Interval history: She is 1 day post vaginal delivery and is doing well. She is eating and drinking and ambulating. She is breast-feeding. Her lochia is normal. Her pain is well-controlled. Medical Exam Vital signs and Labs for Last 24 Hours: Vital Signs Temp Pulse Resp BP Pulse Ox O2 Del Method 11/27/24 08:17 97.9 F 85 16 133/80 98 Room Air 11/26/24 16:45 98.5 F 90 14 117/66 99 Room Air Laboratory Results - last 24 hr 11/27/24 05:47: WBC 16.5 H D, RBC 3.61 L, Hgb 11.3 L D, Hct 33.8 L, MCV 93.6, MCH 31.3 H, MCHC 33.4, RDW 13.6, Plt Count 184, MPV 10.8 H, Neut % (Auto) 68.4, Lymph % (Auto) 13.3, [place] % (Auto) 11.4 H, Eos % (Auto) 0.7, Baso % (Auto) 0.7, Neut # (Auto) 11.3 H, Lymph # (Auto) 2.2, [place] # (Auto) 1.9 H, Eos # (Auto) 0.1, Baso # (Auto) 0.1, Total Counted 100, Neutrophils % (Manual) 72, Lymphocytes % (Manual) 16, Monocytes % (Manual) 12 H, Platelet Estimate Normal, RBC Morphology Normal I & O for Labs for Last 24 Hours: Intake & Output 11/25/24 11/26/24 11/27/24 11/28/24 11:59 11:59 11:59 11:59 Intake Total 1648 / 1648 Output Total 300 / 300 Balance 1348 / 1348 Weight 197 lb Head: Present normocephalic ENT: Present normal exam Neck: Present normal inspection Respiratory: Present normal respiratory effort; Absent accessory muscle use Assessment and Plan *Assessment and plan (1) Vacuum-assisted vaginal delivery: Status: Acute Category: Medical Code(s): Z37.9 - Outcome of delivery, unspecified (2) IUGR, : Status: Acute Category: Medical Code(s): O36.5990 - Maternal care for other known or suspected poor growth, unspecified trimester, not applicable or unspecified (3) Gestational hypertension: Status: Acute Qualifiers: Trimester: unspecified trimester Qualified Code(s): O13.9 - Gestational [-induced] hypertension without significant proteinuria, unspecified trimester Category: Medical Code(s): O13.9 - Gestational [-induced] hypertension without significant proteinuria, unspecified trimester (4) Elevated blood pressure affecting in third trimester, antepartum: Status: Acute Category: Medical Code(s): O16.3 - Unspecified maternal hypertension, third trimester Plan She is doing very well this morning. She is eating and drinking and ambulating. She is breast-feeding. We will plan to send her home tomorrow.
[2024-11-27 16:32] VITALS: BP 133/62; PULSE 96; RESP 18; TEMP 36.8; O2SAT 98
[2024-11-28] MEDS: IBUPROFEN 400 MG TABLET 800 MG PO (04:06)
[2024-11-28 08:34] VITALS: BP 118/69; PULSE 87; RESP 18; TEMP 36.5; O2SAT 100
--- NOTE | 2024-11-28 09:12 | P.DS_ITS ---
General Admission date:: 11/24/24 Discharge date: 11/28/24 HPI HPI HPI: Zoey Garg is a 24-year-old G1, P0 who presented yesterday for induction of labor secondary to gestational hypertension. She is 38 weeks and 2 days gestation today. Her LLOYD of 12/07/2024 is based on her last menstrual period which was consistent with a 7-week ultrasound. Outside of new onset gestational hypertension the patient has also been diagnosed with FGR. BPD and HC in the 3rd percentile. Femur length less than 2. Her BPP on the first was 8 out of 8. O+, antibody negative, rubella immune, hepatitis B negative, hepatitis C negative, RPR negative, HIV negative 1 hour GTT: 78 GBS negative Hospital Course Hospital Course Hospital Course: She received oral misoprostol and was observed overnight. The following day she received more misoprostol since she was progressing slowly and then the evening of 25 November she was started on IV oxytocin. She subsequently progressed overnight to full dilation and delivered with the assistance of a vacuum a liveborn male child at 7:18 AM on the morning of November 26, 2024. The baby had Apgars of 7 at 1 minute and 9 at 5 minutes. He weighed 6 pounds 12 ounces and was 19 and core inches long. She has done well and has remained afebrile throughout her hospitalization. She is eating and drinking and ambulating. She is breast- feeding. Her lochia is normal. She is discharged home to follow-up with Dr. Melchor in 2 weeks time. She was given the usual instructions with respect to limiting her activity, driving and sexual activity. She will continue with her vitamins and iron. She is breast-feeding. She has O Rh+ blood, she is well immune and was group B streptococcus negative. Her condition on discharge is stable and improved. Exam Data for Last 24 hours Vital signs and Labs for Last 24 Hours: Temp Pulse Resp BP Pulse Ox O2 Del Method 97.7 F 87 18 118/69 100 Room Air 11/28/24 08:34 11/28/24 08:34 11/28/24 08:34 11/28/24 08:34 11/28/24 08:34 11/28/24 08:34 I & O for Last 24 hours: Intake & Output 11/25/24 11/26/24 11/27/24 11/28/24 11:59 11:59 11:59 11:59 Intake Total 1648 / 1648 Output Total 300 / 300 Balance 1348 / 1348 Weight 197 lb Constitutional Constitutional: no acute distress *Routine HEENT Exam Head: Present normocephalic *Routine Neck Exam Neck: Present full ROM *Routine Respiratory Exam Respiratory: Present normal respiratory effort; Absent accessory muscle use DS: Diagnosis Discharge Diagnosis (1) Vacuum-assisted vaginal delivery: Status: Acute Code(s): Z37.9 - Outcome of delivery, unspecified (2) IUGR, : Status: Acute Code(s): O36.5990 - Maternal care for other known or suspected poor growth, unspecified trimester, not applicable or unspecified (3) Gestational hypertension: Status: Acute Code(s): O13.9 - Gestational [-induced] hypertension without significant proteinuria, unspecified trimester Qualifiers: Trimester: unspecified trimester Qualified Code(s): O13.9 - Gestational [-induced] hypertension without significant proteinuria, unspecified trimester (4) Elevated blood pressure affecting in third trimester, antepartum: Status: Acute Code(s): O16.3 - Unspecified maternal hypertension, third trimester Meds Home Medications and Allergies Home Medications ?Medication ?Instructions ?Recorded ?Confirmed ?Type vit no.133-ferrous 1 tab PO DAILY 07/27/24 11/24/24 History fumarate 28 mg-folic acid 800 mcg tablet () famotidine 20 mg tablet 20 mg PO DAILY #30 tabs 09/30/24 11/24/24 Rx New Prescriptions to Start Prescriptions: Allergies Allergy/AdvReac Type Severity Reaction Status Date / Time No Known Allergies Allergy Verified 11/23/24 13:56 Discharge Plan Disposition Patient Disposition: Home, Self-Care Discharge Order Discharge Orders: Discharge Order (Routine); Ordered 11/28/24 Ordered By: John Berry Follow up Plan Follow up with: Lesley Melchor DO [Staff Physician] - Enter time for follow up Prescriptions/Medication Reconciliation: Continued famotidine 20 mg tablet 20 mg PO DAILY Qty: 30 2RF 28-800 mg-mcg tablet 1 tab PO DAILY Patient Comments: TAKE 1 TABLET BY MOUTH ONCE DAILY Problem Reconciliation Problems Reviewed?: Yes Patient Discharge Instructions ACTIVITY: No heavy lifting DIET: continue same diet Patient Instructions: Depression, Hemorrhage, DI for Labor and Delivery, Vaginal , DI for Pre-eclampsia, [facility] Post Discharge Instructions Print Language: [place] Providers Primary Care Provider: Robert Melchor Admit Provider: Lesley Melchor Attending Provider: Lesley Melchor
== END 2024-11-28 10:35 | disposition home or self-care (01) | DRG 807 ==
PROVIDERS: Nurse Practitioner Obstetrics & Gynecology; Admitting Provider Obstetrics & Gynecology; PCP Internal Medicine; Visit Provider Obstetrics & Gynecology
DX: O13.4 Gestational [pregnancy-induced] hypertension without significant proteinuria, complicating childbirth (principal); Z37.0 Single live birth; O36.5930 Maternal care for other known or suspected poor fetal growth, third trimester, not applicable or unspecified; O70.0 First degree perineal laceration during delivery; O66.0 Obstructed labor due to shoulder dystocia; Z3A.38 38 weeks gestation of pregnancy
CPT/HCPCS: 36415; 59025; 81001; 82800; 85007; 85025; 86592; 86850; 87086; 94761; C1758; G0283; J2270; J2405; J3010; J7120